=== PATIENT | female | born 1980 | race Caucasian/White ===

== ENCOUNTER 2018-10-12 23:51 | Emergency (ER) | payer OTHER ==
[~2018-10-12] VITALS: Ht 167.6 cm; Wt 69.9 kg
[2018-10-13 00:03] VITALS: BP 139/88
[2018-10-13] MEDS ORDERED: SILVER NITRATE APPLICATOR 1 EA BOX ONE (00:17)
--- NOTE | 2018-10-13 00:25 | NUR ---
Pt BIBSELF FROM HOME C/O A MINOR LEFT SHOULDER BLEED. Pt IS A/OX4, VERBAL, ABLE TO MAKE NEEDS KNOWN. NO S/S OF ACUTE DISTRESS OR SOB NOTED. VS STABLE. Pt WAITING IN BED. SEEN BY MD AT BEDSIDE.
[2018-10-13] MEDS ORDERED: SILVER NITRATE APPLICATOR 1 EA BOX TP ONE (00:30)
--- NOTE | 2018-10-13 01:00 | NUR ---
Patient discharged to home in stable condition. Written and verbal after care instructions given. Patient verbalizes understanding of instruction. Patient left facility on foot with steady gait. No s/s of acute distress or sob noted. vs stable. Pt's friend at bedside is taking her back home.
== END 2018-10-13 01:00 | disposition home or self-care (01) ==
LOC: ER 23:56
DX: D18.01 Hemangioma of skin and subcutaneous tissue (principal); Z96.22 Myringotomy tube(s) status
CPT/HCPCS: A4606; Z7610